=== PATIENT | female | born 1970 | race Asian ===

== ENCOUNTER → 2016-10-12 | Outpatient (CLI) | payer BC ==
[~2016-10-12] MED LIST: METO-448 PO
[2016-10-12 13:25] LABS: ADD SCAN DIFF NO
[2016-10-12 13:32] LABS: BASOPHILS % 0.5 % (0.0-2.0); EOSINOPHILS # 0.1 10^3/ul (0.0-0.5); EOSINOPHILS % 1.6 % (0.0-7.0); HEMATOCRIT 36.8 % (37.0-47.0); HEMOGLOBIN 11.5 g/dl (12.0-16.0); LYMPHOCYTES # 2.2 10^3/ul (0.8-2.9); LYMPHOCYTES % 36.1 % (15.0-51.0); MEAN CORPUSCULAR HEMOGLOBIN 24.7 pg (29.0-33.0); MEAN CORPUSCULAR HGB CONC 31.3 g/dl (32.0-37.0); MEAN CORPUSCULAR VOLUME 79.1 fl (82.0-101.0); MEAN PLATELET VOLUME 10.6 fl (7.4-10.4); MONOCYTE # 0.5 10^3/ul (0.3-0.9); NEUTROPHIL # 3.3 10^3/ul (1.6-7.5); NEUTROPHILS % 53.6 % (39.0-77.0); PLATELET COUNT 234 10^3/UL (140-415); RED BLOOD COUNT 4.65 10^6/ul (4.20-5.40); RED CELL DISTRIBUTION WIDTH 15.1 % (11.5-14.5); WHITE BLOOD COUNT 6.1 10^3/ul (4.8-10.8)
[2016-10-12 13:44] LABS: CHOLESTEROL 180 mg/dl (100-200); TRIGLYCERIDES 108 mg/dl (0-149)
[2016-10-12 13:45] LABS: CHOL/HDL RATIO 4.1 RATIO; HDL CHOLESTEROL 43 mg/dl (34-88)
[2016-10-12 13:57] LABS: IRON 60 ug/dl (35-150)
[2016-10-12 14:06] LABS: TOTAL IRON BINDING CAPACITY 357 ug/dl (241-421)
[2016-10-12 14:21] LABS: FERRITIN 14.1 ng/ml (6.2-137.0)
[2016-10-12 14:52] LABS: FOLATE > 20.0 ng/ml (2.8-20.0)
== END | disposition home or self-care (01) ==
LOC: LAB 12:58
PROVIDERS: ATTEND Internal Medicine
DX: E78.5 Hyperlipidemia, unspecified (principal); D64.9 Anemia, unspecified
CPT/HCPCS: 80061; 82607; 82728; 82746; 83540; 85025

== ENCOUNTER 2017-08-14 08:44 | Emergency (ER) | END 2017-08-14 13:28 | disposition home or self-care (01) ==

== ENCOUNTER → 2017-08-18 | Outpatient (CLI) | END | disposition home or self-care (01) ==

== ENCOUNTER → 2018-01-05 | Outpatient (CLI) | END | disposition home or self-care (01) ==

== ENCOUNTER → 2018-01-07 | Outpatient (CLI) | END | disposition home or self-care (01) ==

== ENCOUNTER 2018-01-28 08:40 | Emergency (ER) | END 2018-01-28 10:02 | disposition home or self-care (01) ==